=== PATIENT | female | born 1960 | race Caucasian/White ===

== ENCOUNTER 2018-05-14 08:00 | Outpatient (CLI) | payer BC ==
[2018-05-14] MEDS ORDERED: Gadobenate Dimeglumine 529 MG/1 ML (20ML VIAL) ONE (12:12)
--- NOTE | 2018-05-14 14:08 | MRI ---
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 The patient is statu s post hysterectomy. COMPARISON: None. TECHNIQUE: Multiplanar, multisequence MR images were obtained of the pelvis with and without IV contrast. FINDINGS: The patient is status post hysterectomy. No pelvic adenopathy is seen. No marrow signal abnormality is present. No obvious mass is seen within the large or small bowel, but evaluation of the bowel is limited with MRI. The urinary bladder is unremarkable. IMPRESSION: No significant pelvic abnormalities, status post hysterectomy. POS: OFF
--- NOTE | 2018-05-14 14:11 | MRI ---
MRI OF THE ABDOMEN WITHOUT AND WITH CONTRAST: 05/14/18 COMPARISON: MRI of the abdomen 05/19/17. HISTORY: Villegas syndrome. History of malignant neoplasm. Susceptibility within the plasma of the ovary and colo n. TECHNIQUE: Multiplanar and multisequence MR images were obtained of the abdomen without and with IV contrast. FINDINGS: There is stable tiny foci of high T2 signal scattered throughout the liver which are nonspecific and could represent small cysts of biliary hamartomas. No suspicious liver lesions are seen. The gallbladder, kidneys, adrenal glands, spleen, and pancreas are unremarkable. No abdominal adenopa thy is seen. No marrow signal abnormality is present. There is stable enlargement of the nerve root s leeves in the lower thoracic spine. No abnormal enhancement is seen on this examination. No obvious l arge colon or small bowel are appreciated, but evaluation of the bowel is limited with MRI. IMPRESSION: There is stable small foci of high T2 signal in the liver which may represent cyst versus biliary ham artomas. POS: OFF
== END 2018-05-14 08:01 | disposition home or self-care (01) ==
LOC: BICMRI 08:00
PROVIDERS: ATTEND Internal Medicine Hematology & Oncology
DX: Z15.02 Genetic susceptibility to malignant neoplasm of ovary (principal); K76.9 Liver disease, unspecified
CPT/HCPCS: 72197; 74183; A9579

== ENCOUNTER 2018-12-03 11:20 | Emergency (ER) | payer BC ==
[2018-12-03 12:09] LABS: #Basophils 0.1 thou/uL (0.0-0.2); #Eosinphils 0.1 thou/uL (0.0-0.7); #Lymphocytes 2.9 thou/uL (1.20-3.40); #Monocytes 0.4 thou/uL (0.11-0.59); #Neutrophils 2.9 thou/uL (1.40-6.50); %Basophils 1.8 % (0.0-1.0); %Eosinophils 1.5 % (0.0-10.0); %Monocytes 5.9 % (0.0-10.0); %Neutrophils 45.9 % (42.0-75.0); Mean Corpuscular HGB CONC 32.1 g/dL (32.0-36.0); Mean Corpuscular Hemoglobin 30.8 pg (27.0-31.0); Mean Platelet Volume 8.2 fL (7.4-10.4); Platelet Count 317 thou/uL (130-400); RBC Distribution Width 11.6 % (11.5-14.5); Red Blood Cell (RBC) Count 4.53 mill/uL (4.20-5.40); White Blood Cell (WBC) Count 6.4 thou/uL (4.8-10.8)
--- NOTE | 2018-12-03 12:15 | RAD ---
PA AND LATERAL VIEWS OF THE CHEST: HISTORY: Chest pain. FINDINGS: The heart size is normal. The lungs are expanded without focal areas of consolidation, pneumothorace s, or pleural effusions. No acute osseous abnormalities are seen. IMPRESSION: No radiographic evidence of acute cardiopulmonary process. POS: [facility]
[2018-12-03 12:30] LABS: ALT (SGPT) 23 U/L (8-55); AST (SGOT) 21 U/L (5-34); Albumin 4.8 g/dL (3.5-5.0); Alkaline Phosphatase 71 U/L (40-150); Anion Gap 17 mmol/L (10-20); BUN (Urea Nitrogen) 12 mg/dL (9.8-20.1); Bilirubin, Total 0.5 mg/dL (0.2-1.2); CK (CPK) 119 U/L (29-168); Calc. Creatinine Clearance 0 mL/min (70-130); Calcium 9.9 mg/dL (7.8-10.44); Carbon Dioxide 21 mmol/L (22-29); Chloride 107 mmol/L (98-107); Estimated GFR-MDRD 78; Globulin 2.4 g/dL (2.4-3.5); Glucose 92 mg/dL (70-105); Potassium 3.8 mmol/L (3.5-5.1); Protein, Total 7.2 g/dL (6.0-8.3); Sodium 141 mmol/L (136-145)
== END 2018-12-03 14:40 | disposition home or self-care (01) ==
LOC: ERS 11:20
DX: R07.89 Other chest pain (principal); F41.9 Anxiety disorder, unspecified; E03.9 Hypothyroidism, unspecified
CPT/HCPCS: 36415; 71046; 80053; 82550; 84484; 85025; 93005

== ENCOUNTER 2019-03-29 08:38 | Outpatient (CLI) | payer BC ==
--- NOTE | 2019-03-29 08:59 | BD ---
EXAM: DEXA bone density examination HISTORY: 59-year-old postmenopausal female for screening COMPARISON: None FINDINGS: L1--bone mineral density 0.902 g/sq cm; T score -0.8 L2--bone mineral density 0.855 g/sq cm; T score -1.6 L3--bone mineral density 0.909 g/sq cm; T score -1.6 L4--bone mineral density 0.951 g/sq cm; T score -1.0 Total L1-L4--bone mineral density 0.908 g/sq cm; T score -1.3 Left femoral neck--bone mineral density0.684; T score -1.5 Total proximal left femur--bone mineral density 0.851; T score -0.7 IMPRESSION: Osteopenia.
== END 2019-03-29 08:39 | disposition home or self-care (01) ==
LOC: BICMAMMO 08:38
PROVIDERS: ATTEND Obstetrics & Gynecology
DX: Z13.820 Encounter for screening for osteoporosis (principal); M85.89 Other specified disorders of bone density and structure, multiple sites
CPT/HCPCS: 77080

== ENCOUNTER 2019-05-09 08:57 | Outpatient (CLI) | payer BC ==
--- NOTE | 2019-05-09 09:51 | ULT ---
ABDOMINAL ULTRASOUND HISTORY: Genetic susceptibility of malignant neoplasm. FINDINGS: Liver: There are T2 hyperintense foci are seen in the liver on prior MRI examination in 2018 which ar e not visualized on sonographic evaluation. The liver demonstrates a grossly normal sonographic appearance on the current exam. Gallbladder: No gallbladder calculi are visualized. There is no gallbladder wall thickening or perich olecystic fluid. Common duct: Common duct is normal in caliber measuring measuring 0.2 cm in diameter. Pancreas: The limited visualized pancreas demonstrates a normal sonographic appearance. IVC: Limited visualized IVC has a normal sonographic appearance. Aorta: The aorta is normal in caliber. Spleen: Within normal limits. Kidneys: Kidneys demonstrate a normal sonographic appearance bilaterally with the right kidney measur ing 8.9 cm in length, and the left kidney measures 12 cm in length. There is a mild discrepancy in renal size, the kidneys do demonstrate a normal sonographic appearance bilaterally, and there is no e vidence of renal cortical thinning. IMPRESSION: Abdominal ultrasound is within normal limits. No gallbladder calculi are seen.
== END 2019-05-09 08:58 | disposition home or self-care (01) ==
LOC: ULT 08:57
PROVIDERS: ATTEND Internal Medicine Hematology & Oncology
DX: Z15.02 Genetic susceptibility to malignant neoplasm of ovary (principal); Z80.0 Family history of malignant neoplasm of digestive organs; M54.5 Low back pain
CPT/HCPCS: 36415; 76700; 80053

== ENCOUNTER 2021-09-19 08:17 | Outpatient (CLI) | payer BC ==
[2021-09-19 09:43] LABS: Estimated GFR-MDRD - POC Greater than 90
== END 2021-09-19 08:18 | disposition home or self-care (01) ==
LOC: MRI 08:17
PROVIDERS: ATTEND Internal Medicine Hematology & Oncology
DX: Z15.02 Genetic susceptibility to malignant neoplasm of ovary (principal); Z80.0 Family history of malignant neoplasm of digestive organs
CPT/HCPCS: 74183; 82565

== ENCOUNTER 2023-10-21 09:24 | Outpatient (CLI) | payer BC | END 2023-10-21 09:25 | disposition home or self-care (01) | LOC: SCSMRI 09:24 | PROVIDERS: ATTEND Internal Medicine Hematology & Oncology | DX: Z80.0 Family history of malignant neoplasm of digestive organs (principal); Z15.02 Genetic susceptibility to malignant neoplasm of ovary | CPT/HCPCS: 74183; 82565 ==

== ENCOUNTER 2024-03-01 14:05 | Outpatient (CLI) | payer BC | END 2024-03-01 14:06 | disposition home or self-care (01) | LOC: SCSRAD 14:05 | PROVIDERS: ATTEND Internal Medicine Rheumatology | DX: M25.511 Pain in right shoulder (principal); M75.91 Shoulder lesion, unspecified, right shoulder ==

== ENCOUNTER 2025-03-29 12:20 | Outpatient (CLI) | payer BC ==
[2025-03-29 12:56] LABS: Estimated GFR - POC 96.0
== END 2025-03-29 12:21 | disposition home or self-care (01) ==
LOC: SCSMRI 12:20
PROVIDERS: ATTEND Internal Medicine Hematology & Oncology
DX: M54.50 Low back pain, unspecified (principal); Z80.0 Family history of malignant neoplasm of digestive organs; Z15.02 Genetic susceptibility to malignant neoplasm of ovary
CPT/HCPCS: 36415; 74183; 76376; 82565

== ENCOUNTER 2025-04-07 12:43 | Outpatient (CLI) | payer BC | END 2025-04-07 12:44 | disposition home or self-care (01) | LOC: SCSRAD 12:43 | PROVIDERS: ATTEND Internal Medicine Rheumatology | DX: L40.59 Other psoriatic arthropathy (principal); M25.562 Pain in left knee; M25.561 Pain in right knee; M17.12 Unilateral primary osteoarthritis, left knee ==

== ENCOUNTER 2025-05-10 14:50 | Outpatient (CLI) | payer BC | END 2025-05-10 14:51 | disposition home or self-care (01) | LOC: SCSBT 14:50 | PROVIDERS: ATTEND Family Medicine | DX: Z78.0 Asymptomatic menopausal state (principal); M85.851 Other specified disorders of bone density and structure, right thigh; M85.852 Other specified disorders of bone density and structure, left thigh | CPT/HCPCS: 77080 ==